=== PATIENT | female | born 1995 | race Caucasian/White ===

== ENCOUNTER → 2016-10-26 | Outpatient (CLI) | payer OTHER ==
--- NOTE | 2016-10-26 19:12 | REP ---
Obstetric sonography: History: Supervision of for growth. Chronic hypertension. 28+ weeks. No comparison study. Findings: Scanning through the gravid uterus demonstrates a viable single intrauterine gestation in a cephalic lie. motion is observed and heart rate is recorded at 141 beats per minute. An anterior grade 1 placenta is seen without evidence of previa. Amniotic fluid is subjectively normal. Closed cervical length is 4.3 cm. No extrauterine abnormalities observed. No anomaly is seen. lungs, heart structures, kidneys, and spine are all less than optimally visualized due to position and crowding. The following additional anatomic structures are identified and felt to be sonographically unremarkable: cranium, choroid plexus, cavum, cerebellum and posterior fossa, face and profile, diaphragm, left-sided stomach, abdominal wall cord insertion, three-vessel umbilical cord, urinary bladder, upper and lower extremities. Biometry chart: BPD 7.4 cm = 29 weeks 3 days HC 26.5 cm = 28 weeks 6 days AC 24.8 cm = 29 weeks 0 days HL 4.9 cm = 29 weeks 0 days HC/AC ratio normal 0.78. Estimated weight 1293 grams, 2 pounds 13 ounces, 40th percentile for 28 weeks 6 days. SEB normal 12.4 cm. S/D ratio in the umbilical cord artery by Doppler is normal at 2.99. Impression: Viable single intrauterine gestation at 29 weeks 0 days by today's composite sonographic criteria. The JITENDRA by today's sonography is January 11, 2017. anatomic survey is incomplete. Signed by Lam Ellison MD 10/26/2016 07:51 P
== END ==
LOC: M RAD 17:31
PROVIDERS: ATTEND Obstetrics & Gynecology
DX: Z36 Encounter for antenatal screening of mother (principal); I10 Essential (primary) hypertension

== ENCOUNTER → 2016-11-23 | Outpatient (CLI) | payer OTHER ==
--- NOTE | 2016-11-23 14:02 | REP ---
OB ULTRASOUND AND BIOPHYSICAL PROFILE: Real-time sonographic evaluation of the gravid uterus performed. There is a single living intrauterine gestation. The estimated gestational age is 32 weeks 6 days, with EDC 01/12/2017. Cervix is closed and measures 4.3 cm in length. heart rate 136 beats per minute. Amniotic fluid is within normal limits. SEB 11.0 within normal range of 8.3 to 24.5. Biophysical profile score is 8 out of 8. S/D ratio is 2.91 within normal range. RI 0.66 within normal range. position vertex. Placenta is posterior and grade 1 with no previa or abruption. There may be a nuchal cord. IMPRESSION: Biophysical profile score 8 out of 8. Signed by Jerald Degroot MD 11/23/2016 03:29 P
== END ==
LOC: M RAD 12:30
PROVIDERS: ATTEND Student in an Organized Health Care Education/Training Program
DX: O36.8130 Decreased fetal movements, third trimester, not applicable or unspecified (principal); Z3A.32 32 weeks gestation of pregnancy

== ENCOUNTER 2016-12-02 20:18 | Outpatient (CLI) | payer OTHER ==
[~2016-12-02] VITALS: Ht 162.6 cm; Wt 116.0 kg
[2016-12-02 20:33] VITALS: BP 151/98
[2016-12-02 20:49] VITALS: BP 145/80
[2016-12-02 21:47] VITALS: BP 134/78
[2016-12-02] MEDS ORDERED: MACR100C3 PO (21:59)
[2016-12-02] MEDS ORDERED: ASPI1TAB PO (21:59)
[2016-12-02 22:20] LABS: ALBUMIN 2.4 GM/DL (3.2-5.2); ALKALINE PHOSPHATASE 106 U/L (45-117); ALT/SGPT 15 U/L (12-78); ANION GAP 7 MEQ/L (8-16); AST/SGOT 16 U/L (15-37); BILIRUBIN,TOTAL 0.2 MG/DL (0.2-1.0); BLOOD UREA NITROGEN 7 MG/DL (7-18); CARBON DIOXIDE LEVEL 26 MEQ/L (21-32); CHLORIDE LEVEL 107 MEQ/L (98-107); CREATININE FOR GFR 0.56 MG/DL (0.55-1.02); GLOMERULAR FILTRATION RATE > 60.0 (>60); GLUCOSE, FASTING 101 MG/DL (70-105); POTASSIUM SERUM 3.8 MEQ/L (3.5-5.1); SODIUM LEVEL 140 MEQ/L (136-145); TOTAL PROTEIN 6.4 GM/DL (6.4-8.2)
[2016-12-02 22:22] LABS: BASO % 0.2 % (0.0-1.0); EOS # 0.2 K/mm3 (0.0-0.50); EOS % 1.3 % (0.0-3.0); LARGE UNSTAINED CELL # 0.1 K/mm3 (0.0-0.4); LARGE UNSTAINED CELL % 1.2 % (0.0-4.0); LYMPH # 2.5 K/mm3 (1.5-6.5); LYMPH % 19.6 % (24.0-44.0); MEAN CORPUSCULAR HEMOGLOBIN 29.3 pg (27.0-33.0); MEAN CORPUSCULAR HGB CONC 33.8 g/dl (32.0-36.5); MEAN CORPUSCULAR VOLUME 86.5 fl (80.0-96.0); MONO # 0.4 K/mm3 (0.0-0.8); MONO % 3.6 % (0.0-5.0); NEUTROPHILS # 8.9 K/mm3 (1.8-7.7); NEUTROPHILS % 74.2 % (36.0-66.0); PLATELET COUNT, AUTOMATED 275 k/mm3 (150-450); RED CELL DISTRIBUTION WIDTH 13.9 % (11.5-14.5); WHITE BLOOD COUNT 11.9 K/mm3 (4.0-10.0)
== END 2016-12-02 23:30 | disposition home or self-care (01) ==
LOC: M LDO 20:18
PROVIDERS: ATTEND Student in an Organized Health Care Education/Training Program
DX: O36.8130 Decreased fetal movements, third trimester, not applicable or unspecified (principal); Z3A.34 34 weeks gestation of pregnancy

== ENCOUNTER 2017-01-07 14:40 | Inpatient (IN) | payer OTHER ==
[~2017-01-07] VITALS: Ht 162.6 cm; Wt 120.0 kg
[~2017-01-07 14:40] MED LIST: ASPI1TAB PO; MACR100C3 PO
[2017-01-07] MEDS ORDERED: PRENTAB9 PO (14:49)
[2017-01-07 16:23] LABS: MEAN CORPUSCULAR HGB CONC 34.7 g/dl (32.0-36.5); MEAN CORPUSCULAR VOLUME 86.5 fl (80.0-96.0); RED CELL DISTRIBUTION WIDTH 13.4 % (11.5-14.5); WHITE BLOOD COUNT 9.9 K/mm3 (4.0-10.0)
[2017-01-07] MEDS ORDERED: miSOPROStol 50 MCG 1/2 TAB (S0191) PO ONE (17:45)
[2017-01-07 19:32] VITALS: BP 138/83
[2017-01-07 20:55] VITALS: BP 159/95
[2017-01-07 21:09] VITALS: BP 142/65
[2017-01-07] MEDS: miSOPROStol 50 MCG 1/2 TAB (S0191) PO SCH (22:17)
[2017-01-07 22:20] VITALS: BP 121/82
[2017-01-07 23:39] VITALS: BP 116/69
[2017-01-08] VITALS (26 sets, daily range): BP systolic 99–138; BP diastolic 54–94
[2017-01-08] MEDS: miSOPROStol 50 MCG 1/2 TAB (S0191) PO SCH ×2 (00:30→06:26)
[2017-01-08] MEDS ORDERED: LR 1,000 ML IV SCH (10:41)
[2017-01-08] MEDS ORDERED: OXYTOCIN DRIP 30 UNITS in APPROPRIATE DILUENT 1 EA IV SCH (10:45)
[2017-01-08] MEDS ORDERED: OXYTOCIN 30 UNITS IN 0.9% NaCl 500ML IV BAG (J2590) As Ordered ONE (23:42)
[2017-01-09] VITALS (75 sets, daily range): BP systolic 85–140; BP diastolic 39–96
[2017-01-09] MEDS ORDERED: PROMETHAZINE INJ 25 MG/ML VIAL (J2550) IV ONE (03:30)
[2017-01-09] MEDS ORDERED: NALBUPHINE HCL 10 MG/ML AMP (J2300) IV ONE (03:30)
[2017-01-09] MEDS ORDERED: NALBUPHINE HCL 10 MG/ML AMP (J2300) IM ONE (03:30)
[2017-01-09] MEDS ORDERED: LR 1,000 ML IV ONE (08:00)
[2017-01-09] MEDS ORDERED: FENTANYL 2MCG/ML ROPIVACAINE 0.2% IN 0.9% NACL 200ML IVBAG As Ordered ONE (08:22)
[2017-01-09 08:33] LABS: MEAN CORPUSCULAR HEMOGLOBIN 29.8 pg (27.0-33.0); MEAN CORPUSCULAR HGB CONC 34.7 g/dl (32.0-36.5); MEAN CORPUSCULAR VOLUME 86.1 fl (80.0-96.0); RED CELL DISTRIBUTION WIDTH 13.4 % (11.5-14.5); WHITE BLOOD COUNT 12.3 K/mm3 (4.0-10.0)
--- NOTE | 2017-01-09 08:45 | IPNPDOC ---
Text Note Date of Service The patient was seen on 01/09/17. NOTE I assumed care of Nae this morning at [address] Luciano. She is a 21yo at 39+4wks EGA by LMP c/w 1st trimester US currently undergoing IOL for CHTN. She is on day 3 of induction, having had 4 doses of cytotec, brown bulb and pitocin. She had SROM last night, clear. She is painfully cj and desiring epidural. Will need to repeat CBC and then epidural can be placed. SCE now /-2 and IUPC placed, well tolerated. FSE previously in place secondary to patient's body habitus. Cat I to II tracing, very occasional small decels otherwise mod nargis and accels. Plan to titrate pitocin to adequate MVUs after epidural placement. Safe to proceed. Dr. Daphne Candelaria MD [place] VS,Joshua, I+O VS, Joshua, I+O Laboratory Tests 01/09/17 08:13 Red Blood Count 4.11, Mean Corpuscular Volume 86.1, Mean Corpuscular Hemoglobin 29.8, Mean Corpuscular Hemoglobin Concent 34.7, Red Cell Distribution Width 13.4 Vital Signs Date Time Temp Pulse Resp B/P (MAP) Pulse Ox O2 Delivery O2 Flow Rate FiO2 01/09/17 07:29 98.9 96 110/71 (84) 01/09/17 02:21 18 I&O- Last 24 Hours up to 6 AM 01/09/17 05:59 Intake Total 915 ml Output Total 900 ml Balance 15 ml DAPHNE CANDELARIA MD January 09, 2017 08:45
[2017-01-09] MEDS ORDERED: ePHEDrine SULFATE 25 MG/5 ML(5MG/ML) SYRINGE As Ordered ONE (09:47)
[2017-01-09] MEDS: ePHEDrine SULFATE 25 MG/5 ML(5MG/ML) SYRINGE IV PRN ×6 (09:51→12:51)
[2017-01-09] MEDS ORDERED: FENTANYL/ROPIVACAINE/NACL BAG 200 ML EPIDURAL SCH (10:15)
[2017-01-09] MEDS ORDERED: REFRIGERATOR IV KEYS XX PRN (10:15)
[2017-01-09] MEDS ORDERED: EPIDURAL/PCA KEYS XX PRN (10:15)
[2017-01-09] MEDS ORDERED: LACTATED RINGER'S 1000 ML IV PRN ×2 (10:15→19:00)
[2017-01-09] MEDS ORDERED: diphenhydrAMINE INJ 50MG/ML VIAL (J1200) IV PRN (10:15)
[2017-01-09] MEDS ORDERED: ONDANSETRON 4MG/2ML VIAL (J2405) IV PRN (10:15)
[2017-01-09] MEDS ORDERED: NALOXONE INJ 0.4 MG/1 ML VIAL (J2310) IV PRN (10:15)
[2017-01-09] MEDS ORDERED: EPIDURAL COMMENT XX SCH (10:15)
--- NOTE | 2017-01-09 17:07 | IPNPDOC ---
Text Note Date of Service The patient was seen on 01/09/17. NOTE Patient seen at 1600 Comfortable with epidural. IUPC was not working, so replaced. SCE now . Still clear fluid. Cat I to II tracing. Occasional episodes of hypotension that result in late decels that resolve with fluid boluses. Continue to titrate pitocin to adequate MVUs. Close eye to tracing. Safe to proceed. Dr. Maritza Candelaria MD VS,Joshua, I+O VS, Joshua, I+O Laboratory Tests 01/09/17 08:13 Red Blood Count 4.11, Mean Corpuscular Volume 86.1, Mean Corpuscular Hemoglobin 29.8, Mean Corpuscular Hemoglobin Concent 34.7, Red Cell Distribution Width 13.4 Vital Signs Date Time Temp Pulse Resp B/P (MAP) Pulse Ox O2 Delivery O2 Flow Rate FiO2 01/09/17 15:42 99.1 101 18 88/49 (62) I&O- Last 24 Hours up to 6 AM 01/09/17 05:59 Intake Total 915 ml Output Total 900 ml Balance 15 ml MARITZA CANDELARIA MD January 09, 2017 17:07
--- NOTE | 2017-01-09 22:27 | IPNPDOC ---
Text Note Date of Service The patient was seen on 01/09/17. NOTE Still comfortable with epidural, not feeling pressure. SCE unchanged at 7/90/-1. Reassuring FHRT. She has been on pitocin with occasionally adequate MVUs with unchanged cervix now for 6 hours. This meets criteria for arrest of dilation. I counseled Nae on this diagnosis and consented her for PLTCS. We discussed the risks/benefits/alternatives of the procedure in detail and we both signed the consent form. Nursing team and anesthesia aware. Dr. Hernandez called and graciously agreed to assist given patient's body habitus. Pt has allergy to PCN, so IV gent/clinda ordered for prophylactic abx. Will proceed to OR when team is ready. Dr. Maritza Candelaria MD VS,Joshua, I+O VS, Joshua, I+O Laboratory Tests 01/09/17 08:13 Red Blood Count 4.11, Mean Corpuscular Volume 86.1, Mean Corpuscular Hemoglobin 29.8, Mean Corpuscular Hemoglobin Concent 34.7, Red Cell Distribution Width 13.4 Vital Signs Date Time Temp Pulse Resp B/P (MAP) Pulse Ox O2 Delivery O2 Flow Rate FiO2 01/09/17 21:15 98.4 94 18 123/75 (91) I&O- Last 24 Hours up to 6 AM 01/09/17 06:00 Intake Total 915 ml Output Total 900 ml Balance 15 ml MARITZA CANDELARIA MD January 09, 2017 22:27
[2017-01-09] MEDS ORDERED: BICITRA 30ML SOLN UDC PO ONE (22:30)
[2017-01-09] MEDS ORDERED: CLINDAMYCIN 900 MG in APPROPRIATE DILUENT 1 EA IV ONE (22:30)
[2017-01-09] MEDS ORDERED: LIDOCAINE PRES-FREE 2% 10ML AMP As Ordered ONE (22:57)
[2017-01-09] MEDS ORDERED: OXYTOCIN INJ 10 UNITS/ML VIAL (J2590) As Ordered ONE (22:59)
[2017-01-09] MEDS ORDERED: D5W IV ONE (23:00)
[2017-01-09] MEDS ORDERED: GENTAMICIN IV ONE (23:00)
[2017-01-09] MEDS ORDERED: PHENYLephrine HCL 500 MCG/5 ML (100MCG/ML) SYRINGE (J2370) As Ordered ONE (23:44)
[2017-01-09] MEDS ORDERED: LR 1,000 ML IV SCH (23:50)
[2017-01-09] MEDS ORDERED: PERCOCET 5MG/325MG TAB PO PRN (23:50)
[2017-01-09] MEDS ORDERED: fentaNYL 100 MCG/2 ML INJECTION (J3010) IV PRN (23:50)
[2017-01-10] VITALS (9 sets, daily range): BP systolic 104–139; BP diastolic 62–76
[2017-01-10] MEDS ORDERED: ONDANSETRON 4MG/2ML VIAL (J2405) As Ordered ONE (00:02)
[2017-01-10] MEDS ORDERED: fentaNYL 100 MCG/2 ML INJECTION (J3010) As Ordered ONE ×2 (00:14→02:00)
[2017-01-10] MEDS ORDERED: LIDOCAINE PRES-FREE 2% 10ML AMP As Ordered ONE (00:15)
[2017-01-10 00:38] LABS: CORD GAS ABE A -2.3; CORD GAS ABE V -4.3; CORD GAS HCO3 V 21.1 MEQ/L; CORD GAS O2 SAT A 34.4 %; CORD GAS O2 SAT V 23.6 %; CORD GAS PCO2 A 52.9 mmHg; CORD GAS PCO2 V 40.2 mmHg; CORD GAS PH A 7.292 UNITS; CORD GAS PH V 7.338 UNITS; CORD GAS PO2 A 17.4 mmHg; CORD GAS SBC A 21.1 MEQ/L; CORD GAS SBC V 19.2 MEQ/L; CORD GAS TCO2 A 26.6 MEQ/L; CORD GAS TCO2 V 22.3 MEQ/L
[2017-01-10] MEDS ORDERED: KETOROLAC 60 MG/2 ML VIAL (J1885) As Ordered ONE (01:01)
[2017-01-10] MEDS ORDERED: RHOGAM 300 MCG (1500 IU) INJ (J2790) IM SCH (01:30)
[2017-01-10] MEDS ORDERED: MEASLES,MUMPS,RUBELLA VACCINE INJ (MMR-II) (90707) SC SCH (01:30)
[2017-01-10] MEDS ORDERED: PERCOCET 5MG/325MG TAB PO PRN (01:30)
[2017-01-10] MEDS ORDERED: PERCOCET 5MG/325MG TAB As Ordered ONE ×2 (02:00→02:29)
[2017-01-10] MEDS: PERCOCET 5MG/325MG TAB PO PRN ×3 (02:30→15:42)
[2017-01-10] MEDS: LR 1,000 ML IV SCH ×3 (03:15→15:41)
[2017-01-10] MEDS: KETOROLAC 30 MG/ML VIAL (J1885) IV SCH ×3 (07:31→21:31)
[2017-01-10] MEDS ORDERED: LR 1,000 ML IV ONE (08:00)
--- NOTE | 2017-01-10 08:17 | IPNPDOC ---
Progress Note Date of Service The patient was seen on 01/10/17 at 08:07. Progress Note Nae is a 21yo [id number] doing well on POD 1 s/p uncomplicated PLTCS for arrest of dilation in the setting of IOL for CHTN at 39w4d. PNC/PMhx significant for morbid obesity, CHTN, asthma, pyelonephritis during . She reports she feels well with minimal pain. Lochia minimal. No f/c/CP/SOB/n/ v. Has not yet ambulated since surgery done late last night. Has brown in place. Breast feeding and baby is latching. Vitals wnl, afebrile Exam: General: WDWN obese F resting comfortably in bed Abdomen: soft, appropriately tender to palpation with fundus firm at U, pressure dressing dry over pfannensteil incision Extremities: SCDs on and functioning UOP has not been robust and is concentrated (was concentrated throughout IOL despite multiple fluid boluses) Labs: Pre-Op H/H 12.3/35.4 EBL 800ml Assessment: Nae is a 21yo [id number] doing well on POD 1 s/p uncomplicated PLTCS for arrest of dilation in the setting of IOL for CHTN at 39w4d. Vitals wnl, exam benign. UOP has not yet picked up, still concentrated as it was through iol. Plan: -Routine post-/post-op care -1L bolus IVF to address UOP -Maintain brown until tomorrow given close proximity to bladder during surgery -Regular diet, advised patient to take it slow -Toradol then motrin along with percocet for pain control -Encourage ambulation, oral hydration, and use of IS -Likely discharge to home 01/12/17 Dr. Maritza Candelaria MD VS, I&O, 24H, [facility] Vital Signs/I&O Vital Signs Date Time Temp Pulse Resp B/P (MAP) Pulse Ox O2 Delivery O2 Flow Rate FiO2 01/10/17 06:35 98.4 98 18 120/62 (81) 98 Room Air I&O- Last 24 Hours up to 6 AM 01/10/17 06:00 Intake Total 6435 ml Output Total 2775 ml Balance 3660 ml Laboratory Data 24H LABS Laboratory Tests 2 01/10/17 00:09: Cord Arterial Blood pH 7.292, Cord Arterial Blood PCO2 52.9, Cord Arterial Blood PO2 17.4, Cord Arterial Blood HCO3 25.0, Cord Arterial Blood Total CO2 26.6, Cord Arterial Blood Base Excess -2.3, Cord Arterial Base Excess (Standard 21.1, Cord Arterial Bld Oxygen Saturation 34.4, Cord Venous Blood pH 7.338, Cord Venous Blood PCO2 40.2, Cord Venous Blood PO2 13.0, Cord Venous Blood HCO3 21.1, Cord Venous Blood Total CO2 22.3, Cord Venous Base Excess (Actual) -4.3, Cord Venous Base Excess (Standard) 19.2, Cord Venous Blood Oxygen Saturation 23.6 CBC/BMP Laboratory Tests 01/09/17 08:13 Red Blood Count 4.11, Mean Corpuscular Volume 86.1, Mean Corpuscular Hemoglobin 29.8, Mean Corpuscular Hemoglobin Concent 34.7, Red Cell Distribution Width 13.4 MARITZA CANDELARIA MD Jan 10, 2017 08:17
[2017-01-10] MEDS: PRENATAL VITAMIN TAB PO SCH (08:47)
[2017-01-10] MEDS: DOCUSATE SODIUM 100 MG CAP PO SCH ×2 (08:47→21:31)
--- NOTE | 2017-01-10 09:16 | RO ---
DATE OF OPERATION: 01/09/2017 INDICATION FOR OPERATION: Nae is a 21-year-old morbidly obese G1, now P1-0-0-1, who underwent induction of labor for chronic hypertension at 39 weeks 4 days. She received four doses of Cytotec and then had Boudreaux bulb placed along with receiving Pitocin. She progressed to 7 cm, 90% effacement, -1 station but had no further progress after 6 hours of inadequate Regent units (MVUs). Arrest of dilation was diagnosed, and she was counseled for a primary low transverse section. PREOPERATIVE DIAGNOSES: 1. Induction of labor for chronic hypertension. 2. Morbid obesity. 3. Arrest of dilation. POSTOPERATIVE DIAGNOSES: 1. Induction of labor for chronic hypertension. 2. Morbid obesity. 3. Arrest of dilation. MATERIAL FORWARDED TO THE LABORATORY FOR EXAMINATION: Cord gases, pH venous 7.338, base excess -4.3, pH arterial 7.292, base excess -2.3. SURGEON: Daphne Candelaria MD PACKING LINE WORKER: Rhys Hernandez MD CLINICAL SERVICE: Obstetrics ANESTHESIA: Epidural DESCRIPTION AND FINDINGS: Female in cephalic presentation, scores 8 and 9, weight 7 pounds 1 ounce or 3202 grams, normal-appearing uterus, fallopian tubes, and ovaries. INFECTION CLASSIFICATION: 2. ESTIMATED BLOOD LOSS: 800 mL. INTRAVENOUS (IV) FLUIDS: 2100 mL lactated Ringer. URINE OUTPUT: 100 mL. OPERATION PERFORMED: Primary low transverse section. DESCRIPTION OF OPERATION: After obtaining informed consent, Nae was taken to the operating room. Boudreaux catheter and bilateral sequential compressions were in place. She was prepped and draped in normal sterile fashion in the dorsal supine position with a left lateral tilt. Time-out was performed to confirm patient name, date of , procedure, and indication. The team was in agreement. Epidural anesthesia was found to be adequate using an Allis clamp. She received gentamicin and clindamycin for antibiotic prophylaxis, since she is penicillin allergic. A Pfannenstiel skin incision was made with a scalpel and carried through to the underlying layer of fascia. The fascia was incised in the midline, and the incision was extended laterally with Anaya scissors. Superior and inferior aspects of the fascial incision were grasped with Lynn clamps, elevated, and the underlying rectus muscles were dissected off bluntly and sharply. Peritoneum was entered digitally, and the rectus muscles were in the midline. The peritoneal incision was extended superiorly and inferiorly with good visualization of the bladder. Bladder blade was inserted, and the vesicouterine peritoneum was identified, grasped with pickups, and entered sharply with the Metzenbaum scissors. The incision was extended laterally, and the bladder flap created digitally. The bladder blade was reinserted, and the lower uterine segment was scored in a transverse fashion with a scalpel. The uterus was entered bluntly, and the incision was extended with traction. The bladder blade was removed, and the 's head was elevated to the level of the incision. Fundal pressure was applied. The head was delivered atraumatically in the occipitoanterior (OA) position. Anterior shoulder, posterior shoulder, and corpus were delivered without difficulty. Nose and mouth were suctioned with bulb suction, and cord was clamped times two and cut. The infant was handed off to the awaiting team. Cord gases were obtained with values as noted above. Placenta was removed with traction on the umbilical cord and uterine massage. The uterus was exteriorized and cleared of all clot and debris. The uterine incision was repaired with 0 Vicryl suture in a running locking fashion, and a second layer of the same suture was used to close the hysterotomy incision in an imbricating fashion. There was an inferior extension on the left aspect of the hysterotomy that was fully closed with 0 Vicryl suture, and hemostasis was noted. The posterior cul-de-sac was irrigated and the uterus returned to the abdomen. The gutters were cleared of all clot. The fascia was reapproximated with 0 Vicryl suture in a running fashion. Subcutaneous tissue was copiously irrigated. Autumn's fascia was reapproximated using 3-0 Vicryl suture in a running fashion. Skin edges were reapproximated using three inverted interrupted stitches using 3-0 Vicryl suture, followed by a running subcuticular stitch using 4-0 Monocryl. The incision was cleaned using a wet lap, dried with a dry lap. Steri-Strips were applied in the usual fashion perpendicular to the Pfannenstiel incision. Two strips of Telfa were layered on top of the Steri-Strips, followed by a dry sterile towel. Surgical drapes were removed, the sterile towel was removed, and a pressure dressing was applied over the entire surgical incision. The vagina was cleared of all blood clot without active bleeding noted. Fundus was firm at the umbilicus. All counts were correct times two. The procedure was without complication, and the patient tolerated the procedure well. She was taken to the recovery room on labor and delivery in stable condition. MISAEL
[2017-01-11] MEDS: LR 1,000 ML IV SCH (01:26)
[2017-01-11] MEDS: KETOROLAC 30 MG/ML VIAL (J1885) IV SCH (01:27)
[2017-01-11 06:10] VITALS: BP 118/80
[2017-01-11 07:19] LABS: MEAN CORPUSCULAR HGB CONC 34.2 g/dl (32.0-36.5); MEAN CORPUSCULAR VOLUME 87.9 fl (80.0-96.0); RED CELL DISTRIBUTION WIDTH 13.8 % (11.5-14.5)
[2017-01-11] MEDS: PRENATAL VITAMIN TAB PO SCH (08:43)
[2017-01-11] MEDS: IBUPROFEN 800 MG TAB PO SCH ×2 (08:43→16:36)
[2017-01-11] MEDS: DOCUSATE SODIUM 100 MG CAP PO SCH ×2 (08:43→20:48)
--- NOTE | 2017-01-11 16:28 | IPNPDOC ---
Progress Note Date of Service The patient was seen on 01/11/17 at 0800. Progress Note Late Entry Nae is a 21yo [id number] doing well on POD 2 s/p uncomplicated PLTCS for arrest of dilation in the setting of IOL for CHTN at 39w4d. PNC/PMhx significant for morbid obesity, CHTN, asthma, pyelonephritis during . She feels well with minimal pain. Lochia minimal. No f/c/CP/SOB/n/v. Ambulating without problem, tolerating regular diet, met due to void this morning after brown removed. Breast feeding and baby is latching. Vitals wnl, afebrile Exam: General: WDWN obese F resting comfortably in bed Cardiac: S1S2 present, no murmur Lungs: CTAB Abdomen: soft, appropriately tender to palpation with fundus firm at U, pressure dressing dry over pfannensteil incision Extremities: SCDs on and functioning Labs: Pre-Op H/H 12.3/35.4 Post-Op H/H 9.8/28.8 EBL 800ml Assessment: Nae is a 21yo [id number] doing well on POD 2 s/p uncomplicated PLTCS for arrest of dilation in the setting of IOL for CHTN at 39w4d. Vitals wnl, exam benign. Met due to void. Hemodynamically stable with no evidence of infection. Plan: -Routine post-/post-op care -Regular diet -Motrin along with percocet for pain control -Encourage ambulation, oral hydration, and use of IS -Likely discharge to home tomorrow morning Dr. Maritza Candelaria MD [facility] VS, I&O, 24H, [facility] Vital Signs/I&O Vital Signs Date Time Temp Pulse Resp B/P (MAP) Pulse Ox O2 Delivery O2 Flow Rate FiO2 01/11/17 06:10 97.9 105 18 118/80 (93) 01/10/17 22:18 97 Room Air I&O- Last 24 Hours up to 6 AM 01/11/17 06:00 Intake Total 2320 ml Output Total 3250 ml Balance -930 ml Laboratory Data CBC/BMP Laboratory Tests 01/11/17 07:03 Red Blood Count 3.28 L, Mean Corpuscular Volume 87.9, Mean Corpuscular Hemoglobin 30.0, Mean Corpuscular Hemoglobin Concent 34.2, Red Cell Distribution Width 13.8 MARITZA CANDELARIA MD Jan 11, 2017 16:28
[2017-01-11 18:00] VITALS: BP 117/65
[2017-01-12] MEDS: IBUPROFEN 800 MG TAB PO SCH ×2 (01:39→08:49)
[2017-01-12 05:29] VITALS: BP 138/78
[2017-01-12] MEDS: DOCUSATE SODIUM 100 MG CAP PO SCH (08:48)
[2017-01-12] MEDS: PRENATAL VITAMIN TAB PO SCH (08:49)
[2017-01-12] MEDS ORDERED: SILVER SULFADIAZINE 1% CR 50 GM JAR TOP SCH (09:00)
[2017-01-12] MEDS ORDERED: IBUP-1114 PO (09:53)
[2017-01-12] MEDS ORDERED: OXYC1TAB23 PO ×2 (09:54→09:55)
--- NOTE | 2017-01-12 09:55 | IPNPDOC ---
Progress Note Date of Service The patient was seen on 01/12/17 at 09:46. Progress Note Nae is a 21yo [id number] doing well on POD 3 s/p uncomplicated PLTCS for arrest of dilation in the setting of IOL for CHTN at 39w4d. PNC/PMhx significant for morbid obesity, CHTN, asthma, pyelonephritis during . She feels well with minimal pain. Lochia scant. No f/c/CP/SOB/n/v. Ambulating without problem, tolerating regular diet, voiding without issue. Breast feeding and baby is latching. Baby is under bili light this morning. Vitals wnl, afebrile Exam: General: WDWN obese F resting comfortably in bed Cardiac: S1S2 present, no murmur Lungs: CTAB Abdomen: soft, appropriately tender to palpation with fundus firm at U, pfannensteil incision clean, dry, intact with no erythema/induration/drainage/ dehiscence and steri strips overlying Extremities: no pain with palpation of calves Labs: Pre-Op H/H 12.3/35.4 Post-Op H/H 9.8/28.8 EBL 800ml Assessment: Nae is a 21yo [id number] doing well on POD 3 s/p uncomplicated PLTCS for arrest of dilation in the setting of IOL for CHTN at 39w4d. Vitals wnl, exam benign. Hemodynamically stable with no evidence of infection. Plan: -Patient to be discharged to boarding status -Regular diet -Motrin along with percocet for pain control -Will follow up in 2 weeks for incision check -Discussed return precautions: fevers/chills/increasing abdominal pain/foul smelling lochia/breast redness/evidence of wound infection Dr. Maritza Candelaria MD [facility] VS, I&O, 24H, [facility] Vital Signs/I&O Vital Signs Date Time Temp Pulse Resp B/P (MAP) Pulse Ox O2 Delivery O2 Flow Rate FiO2 01/12/17 05:29 99.1 94 18 138/78 (98) 01/11/17 18:00 97 Room Air I&O- Last 24 Hours up to 6 AM 01/12/17 06:00 Intake Total 1960 ml Output Total 1850 ml Balance 110 ml MARITZA CANDELARIA MD Jan 12, 2017 09:55
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
[2017-01-13] MEDS ORDERED: LIDO2JELLY TOP (21:37)
== END 2017-01-12 11:38 | disposition home or self-care (01) | DRG 765 ==
LOC: M LDI 14:40 → M OBS 01-10 03:09
PROVIDERS: ADMIT Obstetrics & Gynecology; ATTEND Obstetrics & Gynecology
PROC: 3E033VJ Introduction of Other Hormone into Peripheral Vein, Percutaneous Approach (ICD-10-PCS; 2017-01-07)
PROC: 3E0DXGC Introduction of Other Therapeutic Substance into Mouth and Pharynx, External Approach (ICD-10-PCS; 2017-01-07)
PROC: 10D00Z1 Extraction of Products of Conception, Low, Open Approach (ICD-10-PCS; principal; 2017-01-09)
DX: O10.02 Pre-existing essential hypertension complicating childbirth (principal); N11.9 Chronic tubulo-interstitial nephritis, unspecified; O23.03 Infections of kidney in pregnancy, third trimester; Z37.0 Single live birth; Z3A.39 39 weeks gestation of pregnancy; E66.01 Morbid (severe) obesity due to excess calories; O99.214 Obesity complicating childbirth; O62.0 Primary inadequate contractions

== ENCOUNTER 2017-01-13 19:48 | Emergency (ER) | payer OTHER ==
[~2017-01-13] VITALS: Ht 152.4 cm; Wt 117.9 kg
[~2017-01-13 19:48] MED LIST changes: +IBUP-1114 PO; +OXYC1TAB23 PO; +PRENTAB9 PO
[2017-01-13 20:56] VITALS: BP 147/97
[2017-01-13] MEDS ORDERED: LIDOCAINE 2% JELLY 30 ML TOP ONE (21:00)
[2017-01-13] MEDS ORDERED: LIDO2JELLY TOP (21:37)
== END 2017-01-13 21:46 | disposition home or self-care (01) ==
LOC: M ED 21:10
DX: T21.22XA Burn of second degree of abdominal wall, initial encounter (principal); T31.0 Burns involving less than 10% of body surface; Y92.9 Unspecified place or not applicable; Y93.9 Activity, unspecified; Y99.9 Unspecified external cause status; Z79.899 Other long term (current) drug therapy; Z88.0 Allergy status to penicillin

== ENCOUNTER → 2017-02-21 | Outpatient (CLI) | payer OTHER ==
[~2017-02-21] MED LIST changes: +ISOVUE-370 76% 100ML VIAL (Q9967) As Ordered ONE; +LIDO2JELLY TOP; -MACR100C3 PO; +MACR100C43 PO
--- NOTE | 2017-02-21 16:35 | REP ---
CT PELVIS WITH IV CONTRAST: CT pelvis performed following the intravenous administration of 100 mL of Isovue-370. Sagittal and coronal reconstruction images are performed. The uterus is normal in size. No enhancing soft tissue mass is seen in the endometrial cavity with no CT evidence for retained products of conception. The uterus is retroverted. Ovaries appear unremarkable. No free air or free fluid is seen in the pelvis. There is no fluid collection. The urinary bladder is mildly distended and grossly unremarkable. IMPRESSION: No CT evidence of retained products of conception in the uterus. Signed by Jerald Degroot MD 02/21/2017 07:28 P
== END ==
LOC: M RAD 15:50
PROVIDERS: ATTEND Obstetrics & Gynecology
DX: Z39.2 Encounter for routine postpartum follow-up (principal)